=== PATIENT | female | born 1940 | race Two or more races ===

== ENCOUNTER 2025-03-10 11:44 | Emergency (ER) | payer OTHER, MEDICAID ==
[~2025-03-10] VITALS: Ht 167.6 cm; Wt 80.0 kg
[2025-03-10 11:49] VITALS: O2SAT 95
[2025-03-10 12:47] LABS: HEMATOCRIT. 39.3 % (36.0-48.0); HEMOGLOBIN. 12.9 g/dL (12.0-16.0); MEAN CORPUSCULAR HEMOGLOBIN 31.2 pg (28.0-32.0); MEAN CORPUSCULAR HGB CONC 32.9 g/dL (31.0-37.0); MEAN CORPUSCULAR VOLUME 94.8 fL (81.0-99.0); MEAN PLATELET VOLUME 7.4 fl (7.4-10.4); PLATELET 116 x1000/uL (130-400); RED BLOOD CELL COUNT 4.14 mill/uL (4.2-5.4); RED CELL DISTRIBUTION WIDTH 14.2 % (11.6-14.6); WHITE BLOOD COUNT 17.4 x1000/uL (4.5-11.0)
[2025-03-10 12:48] LABS: DIFFERENTIAL COMMENT 1
[2025-03-10 12:56] LABS: POTASSIUM 3.5 mEq/L (3.5-5.1)
[2025-03-10 13:00] LABS: INR 1.2; PARTIAL THROMBOPLASTIN TIME 35.6 sec (23.4-31.0); PROTHROMBIN TIME 12.4 sec (9.6-11.0)
[2025-03-10 13:02] LABS: CREATININE 1.4 mg/dL (0.6-1.0)
[2025-03-10 13:19] VITALS: TEMP 37
[2025-03-10 13:52] LABS: PLATELET ESTIMATE SLIGHTLY DECREASED
[2025-03-10] MEDS: SODIUM CHLORIDE 0.9% 1,000 ML IV ONE (14:50)
[2025-03-10 15:51] VITALS: BP 112/48; PULSE 79; RESP 18; O2SAT 96
== END 2025-03-10 15:55 | disposition home or self-care (01) ==
LOC: ER 11:44
DX: S09.90XA Unspecified injury of head, initial encounter (principal); N17.9 Acute kidney failure, unspecified; E11.9 Type 2 diabetes mellitus without complications; D32.0 Benign neoplasm of cerebral meninges; Z79.899 Other long term (current) drug therapy; W19.XXXA Unspecified fall, initial encounter; Y93.89 Activity, other specified; Y92.89 Other specified places as the place of occurrence of the external cause; Y99.8 Other external cause status
CPT/HCPCS: 99284; 70450; 80048; 85025; 85610; 85730; 86850; 86900; 86901; 36415; 93005; J7030; A4606